=== PATIENT | female | born 1985 | race Hispanic/Latino ===

== ENCOUNTER 2017-08-20 16:03 | Inpatient (IN) | payer OTHER ==
[2017-08-20] MEDS ORDERED: BRETHINE SUB-Q PRN (17:41)
[2017-08-20] MEDS ORDERED: XYLOCAINE 2% INFILTRATI ONE (17:41)
[2017-08-20] MEDS ORDERED: MINERAL OIL PO PRN (17:41)
[2017-08-20] MEDS ORDERED: BRETHINE IVP PRN (17:41)
[2017-08-20] MEDS ORDERED: SUBLIMAZE IV PRN (17:48)
[2017-08-20] MEDS ORDERED: PITOCin/NS 20 UNIT/1000ML DRIP 20 UNITS/1,000 ML BAG IV SCH (18:00)
[2017-08-20] MEDS ORDERED: PITOCin/NS 30 UNIT/500ML 30 UNITS/500 ML BAG IV SCH (18:00)
[2017-08-20] MEDS: PITOCin/NS 30 UNIT/500ML 30 UNITS/500 ML BAG IV SCH ×3 (18:39→23:07)
[2017-08-20] MEDS: LACTATED RINGERS 1,000 ML IV SCH ×2 (18:39→23:08)
[2017-08-20 19:11] LABS: Mean Corpuscular HGB Conc 34 % (30-34); Mean Corpuscular Hemoglobin 30 pg (28-32); Mean Corpuscular Volume 88 fl (79-97); Platelet Count 178 K/mm3 (140-440); Red Blood Count 4.31 M/mm3 (3.65-5.03); Red Cell Distribution Width 14.6 % (13.2-15.2)
[2017-08-21] MEDS ORDERED: NARCAN 2 MG/2 ML IV PRN (00:53)
[2017-08-21] MEDS ORDERED: ePHEDrine SULFATE IV PRN (00:53)
--- NOTE | 2017-08-21 00:53 | Anesthesia Consultation ---
Anesthesia Consult and Med Hx Date of service: 08/21/17 - Airway Anesthetic Teeth Evaluation: Good ROM Head & Neck: Adequate Mental/Hyoid Distance: Adequate Mallampati Class: Class II Intubation Access Assessment: Good - Pulmonary Exam CTA: Yes - Cardiac Exam Cardiac Exam: No Murmur - Pre-Operative Health Status ASA Pre-Surgery Classification: ASA2 Proposed Anesthetic Plan: Epidural - Pulmonary Hx Asthma: No COPD: No Hx Pneumonia: No - Cardiovascular System Hx Hypertension: No - Central Nervous System Hx Seizures: No Hx Psychiatric Problems: No - Endocrine Hx Renal Disease: No Hx End Stage Renal Disease: No Hx Hypothyroidism: Yes (current) Hx Hyperthyroidism: No - Hematic Hx Anemia: No Hx Sickle Cell Disease: No - Other Systems Hx Alcohol Use: No
[2017-08-21] MEDS: ePHEDrine SULFATE IV PRN ×2 (00:56→01:02)
[2017-08-21] MEDS ORDERED: fentaNYL-BUPIV 2 MCG/ML-0.125% 200 MCG/100 ML BAG EPIDURAL SCH (01:00)
[2017-08-21] MEDS: LACTATED RINGERS 1,000 ML IV SCH (03:24)
--- NOTE | 2017-08-21 09:17 | History and Physical Report ---
History of Present Illness Date of examination: 08/21/17 Date of admission: 08/20/17 16:03 Chief complaint: I need to be induced History of present illness: Patient is a 32 year old who presents for induction of labor at 40 weeks for gestational diabetes at the advice of [facility]. Patient's course has been complicated by gestation diabetes and nothing else. Past History Past Medical History: diabetes, thyroid disease Past Surgical History: no surgical history Social history: - Obstetrical History Expected Date of Delivery: 08/20/17 Actual Gestation: 40 Week(s) 1 Day(s) : 2 Para: 1 Number of Living Children: 1 Medications and Allergies Allergies Allergy/AdvReac Type Severity Reaction Status Date / Time codeine Allergy Hives Verified 08/20/17 17:14 Home Medications Medication Instructions Recorded Confirmed Last Taken Type Levothyroxine 100 mcg PO 5XW 08/20/17 08/20/17 08/19/17 22:00 History One Daily Tablet 1 tab PO QDAY 08/20/17 08/20/17 08/20/17 07:30 History Active Meds: Active Medications Ephedrine Sulfate (Ephedrine Sulfate) 10 mg IV Q2M PRN PRN Reason: Hypotension Last Admin: 08/21/17 01:02 Dose: 10 mg Ephedrine Sulfate (Ephedrine Sulfate) 10 mg IV Q2M PRN PRN Reason: Hypotension Fentanyl (Sublimaze) 100 mcg IV Q2H PRN PRN Reason: Labor Pain Lactated Ringer's (Lactated Ringers) 1,000 mls @ 125 mls/hr IV DIRECT JODI Last Admin: 08/21/17 03:24 Dose: 125 mls/hr Oxytocin/Sodium Chloride (Pitocin/Ns 20 Unit/1000ml Drip) 20 units in 1,000 mls @ 125 mls/hr IV DIRECT JODI Oxytocin/Sodium Chloride (Pitocin/Ns 30 Unit/500ml) 30 units in 500 mls @ 1 mls /hr IV TITR JODI; 1 MILLIUNITS/MIN PRN Reason: Protocol Oxytocin/Sodium Chloride (Pitocin/Ns 30 Unit/500ml) 30 units in 500 mls @ 2 mls /hr IV TITR JODI PRN Reason: Protocol Last Titration: 08/21/17 05:48 Dose: 20 mls/hr, 20 mls/hr Fentanyl/Bupivacaine/Sodium Chlor (Fentanyl-Bupiv 2 Mcg/Ml-0.125%) 200 mcg in 100 mls @ 12 mls/hr EPIDURAL TITR JODI PRN Reason: Protocol Last Admin: 08/21/17 01:17 Dose: 12 mls/hr Mineral Oil (Mineral Oil) 30 ml PO QHS PRN PRN Reason: Constipation Naloxone HCl (Narcan 2 Mg/2 Ml) 0.2 mg IV Q5M PRN PRN Reason: Respiratory sedation Terbutaline Sulfate (Brethine) 0.25 mg SUB-Q ONCE PRN PRN Reason: Hyperstimulation/Hypertonicity Terbutaline Sulfate (Brethine) 0.25 mg IVP ONCE PRN PRN Reason: Hyperstimulation/Hypertonicity Review of Systems All systems: negative Genitourinary: pelvic pain, contractions - Vital Signs Vital signs: Vital Signs Pulse BP 100 H 120/79 08/20/17 16:29 08/20/17 16:29 Temp Pulse Resp BP Pulse Ox 98.0 F 115 H 16 119/61 96 08/21/17 07:21 08/21/17 08:55 08/21/17 07:21 08/21/17 08:55 08/21/17 08:23 - Physical Exam Breasts: Cardiovascular: Regular rate, Normal S1, Normal S2 Lungs: Positive: Clear to auscultation, Normal air movement Abdomen: Positive: normal appearance, soft, normal bowel sounds. Negative: distention, tenderness Genitourinary (Female): Positive: normal external genitalia, normal perenium Vulva: both: normal Vagina: Positive: normal moisture. Negative: discharge Cervix: Negative: lesion, discharge Uterus: Positive: normal size, normal contour Adnexa: both: normal Anus/Rectum: Positive: normal perianal skin, heme negative. Negative: rectal mass, hemorrhoids Extremities: Deep Tendon Reflex Grade: Normal +2 - Obstetrical Cervical Dilatation: 3 Cervical Effacement Percentage: 60 station: -3 Uterine Contraction Pattern: Absent Results Result Diagrams: 08/20/17 18:49 Abnormal lab results 08/20/17 Range/Units 17:31 POC Glucose 61 L (70-105) All other labs normal. Assessment and Plan IUP at 40 weeks here for induction due to gestational diabetes. Admit for labor. Anticipate .
--- NOTE | 2017-08-21 09:23 | Procedure Note ---
OB Delivery Note - Delivery Date of Delivery: 08/21/17 Surgeon: TERI SILVA Estimated blood loss: 200cc - Vaginal Delivery presentation: vertex Delivery position: OA Intrapartum events: none Delivery induction: oxytocin Delivery monitor: external FHT, external uterine Route of delivery: Delivery placenta: spontaneous Delivery cord: 3 umbilical vessels Delivery laceration: 2nd degree Delivery repair: chromic Anesthesia: epidural Delivery comments: Viable female delivered over intact perineum and placed on maternal abdomen. Cord clamped and cut when finished pulsating. Weight 8 pounds 6 ounces. Apgars 8,9. Placenta delivered spontaneously and intact with 3vc.Small laceration repaired with 2.0 chromic. Excellent hemostasis. Patient tolerated procedure well. - Infant A at 1 minute: 8 at 5 minutes: 9 Infant Gender: Female
[2017-08-21] MEDS ORDERED: BENADRYL PO PRN (11:09)
[2017-08-21] MEDS ORDERED: LANSINOH TP PRN (11:09)
[2017-08-21] MEDS ORDERED: MILK OF MAGNESIA PO PRN (11:09)
[2017-08-21] MEDS ORDERED: PHENERGAN PO PRN (11:09)
[2017-08-21] MEDS ORDERED: COLACE PO SCH (11:09)
[2017-08-21] MEDS ORDERED: DULCOLAX PR PRN (11:09)
[2017-08-21] MEDS ORDERED: SODIUM CHLORIDE FLUSH SYRINGE 10 ML IV NR (11:09)
[2017-08-21] MEDS ORDERED: ZOFRAN IV PRN (11:09)
[2017-08-21] MEDS ORDERED: TUCKS PAD TP PRN (11:09)
[2017-08-21] MEDS ORDERED: TYLENOL PO PRN (11:09)
[2017-08-21] MEDS ORDERED: PHENERGAN PR PRN (11:09)
[2017-08-21] MEDS ORDERED: NORCO 5/325 PO PRN (11:09)
[2017-08-21] MEDS: PRENATAL VITAMIN PO SCH (13:10)
[2017-08-21] MEDS: MOTRIN PO SCH (13:10)
[2017-08-21 22:07] LABS: Hematocrit 35.5 % (30.3-42.9); Hemoglobin 11.9 gm/dl (10.1-14.3)
[2017-08-22] MEDS: MOTRIN PO SCH (09:25)
[2017-08-22] MEDS: PRENATAL VITAMIN PO SCH (09:25)
--- NOTE | 2017-08-22 12:44 | Progress Note ---
Assessment and Plan ppd 1 s/p . Doing well. Plan for discharge on today Subjective - Subjective Date of service: 08/22/17 Interval history: Patient is a 32 year old who presents for induction of labor at 40 weeks for gestational diabetes at the advice of [facility]. Patient's course has been complicated by gestation diabetes and nothing else. Patient reports: appetite normal, voiding normally, pain well controlled, ambulating normally : doing well Objective - Vital Signs Latest vital signs: Vital Signs Temp Pulse Resp BP Pulse Ox 08/22/17 09:08 98.3 F 88 18 130/88 96 08/22/17 01:35 98.0 F 93 H 20 113/84 98 08/21/17 21:10 97.8 F 95 H 20 105/79 96 08/21/17 17:35 98 F 91 H 20 115/83 Intake and Output 08/21/17 08/22/17 08/22/17 22:59 06:59 14:59 Intake Total 600 480 Balance 600 480 Intake: Oral 600 480 Other: Total, Intake Amount 240 240 # Voids Void 1 1 - Exam Cardiovascular: Present: Regular rate, Normal S1, Normal S2 Lungs: Present: Clear to auscultation, Normal air movement Abdomen: Present: normal appearance, soft Uterus: Present: normal, firm Extremities: Present: normal Incision: Present: normal, dry, intact
--- NOTE | 2017-08-22 12:45 | Discharge Summary ---
Providers - Providers Date of Admission: 08/20/17 16:03 Date of discharge: 08/22/17 Attending physician: TERI SILVA Primary care physician: TERI SILVA Hospitalization Reason for admission: induction of labor Delivery: Episiotomy: none Laceration: 2nd degree Other procedures: none complications: none Discharge diagnosis: IUP at term delivered baby: female Hospital course: unremarkable Condition at discharge: Good Disposition: DC-01 TO HOME OR SELFCARE Plan - Discharge Medications Prescriptions: Ibuprofen [Motrin] 600 mg PO Q8H PRN #40 tablet PRN Reason: Pain - Provider Discharge Summary Activity: routine, no sex for 6 weeks, no heavy lifting 4 weeks Diet: routine Instructions: routine Additional instructions: [] Smoking cessation referral if applicable(refer to patient education folder for contact #) [] Refer to [facility] Booklet Call your doctor immediately for: * Fever > 100.5 * Heavy vaginal bleeding ( >1 pad per hour) * Severe persistent headache * Shortness of breath * Reddened, hot, painful area to leg or breast * Drainage or odor from incision. * Keep incision clean and dry at all times and follow doctor's instructions regarding bathing/showering - Follow up plan Follow up: TERI SILVA MD [Primary Care Provider] - 6 Weeks
[2017-08-22 16:44] VITALS: BP 124/82
== END 2017-08-22 18:35 | disposition home or self-care (01) | DRG 775 ==
LOC: LD 16:03 → OB 08-21 11:08
PROVIDERS: ADMIT Obstetrics & Gynecology; ATTEND Obstetrics & Gynecology
PROC: 10E0XZZ Delivery of Products of Conception, External Approach (ICD-10-PCS; principal; 2017-08-21)
PROC: 0KQM0ZZ Repair Perineum Muscle, Open Approach (ICD-10-PCS; 2017-08-21)
PROC: 3E033VJ Introduction of Other Hormone into Peripheral Vein, Percutaneous Approach (ICD-10-PCS; 2017-08-21)
PROC: 3E0R3BZ Introduction of Anesthetic Agent into Spinal Canal, Percutaneous Approach (ICD-10-PCS; 2017-08-21)
PROC: 00HU33Z Insertion of Infusion Device into Spinal Canal, Percutaneous Approach (ICD-10-PCS; 2017-08-21)
DX: O24.429 Gestational diabetes mellitus in childbirth, unspecified control (principal); O70.1 Second degree perineal laceration during delivery; O99.284 Endocrine, nutritional and metabolic diseases complicating childbirth; E03.9 Hypothyroidism, unspecified; Z37.0 Single live birth; Z3A.40 40 weeks gestation of pregnancy; Z88.5 Allergy status to narcotic agent; Z79.899 Other long term (current) drug therapy
CPT/HCPCS: 36415; 82962; 85014; 85018; 85027; 86592; 86850; 86900; 86901; 99211; G0463; J2590; J7120